=== PATIENT | male | born 1965 | race Two or more races ===

== ENCOUNTER 2024-07-24 20:34 | Emergency (ER) | payer MEDICAID, SELFPAY ==
[2024-07-24 21:07] VITALS: BP 163/92; PULSE 68; RESP 18; TEMP 36.7; O2SAT 96
--- NOTE | 2024-07-24 21:15 | PD.EDRME ---
Rapid Medical Screening Exam RME Arrival date/time: 07/24/24 20:34 59-year-old male presents emergency department complaining of pruritic rash to bilateral groins and left lower quadrant of abdomen that started 6 days ago. Chief Complaint: Skin/Abscess/Foreign Body Time Seen by Provider: 07/24/24 20:41 Vital signs: Vital Signs Temperature 98.1 F 07/24/24 21:07 Pulse Rate 68 07/24/24 21:07 Respiratory Rate 18 07/24/24 21:07 Blood Pressure 163/92 H 07/24/24 21:07 Pulse Oximetry (%) 96 07/24/24 21:07 Oxygen Delivery Method Room Air 07/24/24 21:07 Vital signs reviewed by provider: Yes
[2024-07-24] MEDS: DEXAMETHASONE SOD PHOS INJ 10 MG/ML VIAL IM (21:29)
[2024-07-24] MEDS: FAMOTIDINE 20 MG TABLET 40 MG PO (21:29)
[2024-07-24] MEDS: DiphenhydrAMINE 25 MG CAPSULE PO (21:29)
--- NOTE | 2024-07-24 22:48 | PD.EDALLER ---
ED Allergic Reaction RME/HPI General Chief complaint: Skin/Abscess/Foreign Body Stated complaint: Rash from stomach to Knees/itching/burning Time Seen by Provider: 07/24/24 20:41 Source: patient Arrival date/time: 07/24/24 20:34 59-year-old male presents emergency department complaining of pruritic rash to bilateral groins and left lower quadrant of abdomen that started 6 days ago after drinking alcohol. Mode of arrival: ambulatory Limitations: no limitations RME / HPI RME / HPI narrative: 07/24/24 20:34 59-year-old male presents emergency department complaining of pruritic rash to bilateral groins and left lower quadrant of abdomen that started 6 days ago. Related Data Home Medications ?Medication ?Instructions ?Recorded ?Confirmed lisinopril 5 mg tablet 5 mg PO QDAY 12/21/19 12/21/19 losartan 50 mg tablet 50 mg PO QDAY 04/01/22 04/30/22 tamsulosin 0.4 mg capsule 0.4 mg PO QHS 04/01/22 04/30/22 Previous Rx's ?Medication ?Instructions ?Recorded pantoprazole 40 mg tablet,delayed 40 mg PO QDAY #14 tabs 12/21/19 release (Protonix) omeprazole 20 mg capsule,delayed 20 mg PO QDAY #30 caps 03/11/22 release diphenhydramine HCl 25 mg capsule 25 mg PO TID PRN itching 7 days 07/24/24 (Benadryl) #10 caps Allergies Allergy/AdvReac Type Severity Reaction Status Date / Time No Known Allergies Allergy Verified 12/04/22 23:21 Review of Systems Review of Systems Systems Reviewed: All systems reviewed, normal except as documented Constitutional Constitutional: Reports system reviewed and no additional complaints, except as documented, Denies body ache(s), Denies chills and Denies fever(s) Eyes Eyes: Reports system reviewed and no additional complaints, except as documented and Denies change in vision ENT Ears, Nose, Mouth, and Throat: Reports system reviewed and no additional complaints, except as documented, Denies disequilibrium, Denies dizziness, Denies sore throat and Denies vertigo Cardiovascular Cardiovascular: Reports system reviewed and no additional complaints, except as documented, Denies chest pain and Denies dyspnea Respiratory Respiratory: Reports system reviewed and no additional complaints, except as documented, Denies chest congestion, Denies cough and Denies dyspnea Gastrointestinal Gastrointestinal: Reports system reviewed and no additional complaints, except as documented, Denies abdominal pain, Denies nausea and Denies vomiting Musculoskeletal Musculoskeletal: Reports system reviewed and no additional complaints, except as documented, Denies abnormal gait and Denies arthralgias Integumentary/Breasts Skin/Breast: Reports system reviewed and no additional complaints, except as documented, Denies erythema, Reports rash and Denies wounds Neurologic Neurologic: Reports system reviewed and no additional complaints, except as documented, Denies abnormal gait, Denies disequilibrium, Denies dizziness and Denies vertigo Past Medical History Past Medical History CARDIAC: Positive Hypertension; Negative Cardiac Disorders or Congestive Heart Failure RESPIRATORY: Negative Chronic Obstructive Pulmonary Disease (COPD) or Asthma GENITOURINARY: Negative Renal Disease ENDOCRINE: Negative Diabetes Mellitus Type 1 or Diabetes Mellitus Type 2 HEMATOLOGIC: Negative Sickle Cell Disease Social History SMOKING STATUS: Never smoker ED Exam General Limitations: Present no limitations General appearance: Present alert and in no apparent distress Head Head exam: Present atraumatic Eye Eye exam: Present normal appearance, PERRL and EOMI ENT ENT exam: Present normal exam, normal oropharynx and mucous membranes moist Neck Neck exam: Present normal inspection, full ROM and trachea midline Chest Chest inspection: Present normal inspection and symmetric chest wall rise Respiratory Respiratory exam: Present normal lung sounds bilaterally Cardiovascular Cardiovascular exam: Present regular rate, normal rhythm and normal heart sounds Abdominal Exam Abdominal exam: Present soft and normal bowel sounds Extremities Exam Extremities exam: Present normal inspection and full ROM Back Exam Back exam: Present normal inspection and full ROM Neurological Exam Neurological exam: Present alert, oriented X3 and CN II-XII intact Psychiatric Psychiatric exam: Present normal affect and normal mood Skin Skin exam: Present warm, dry, intact and rash Expanded Skin Exam Type of lesion: Present rash Distribution: Present generalized, abdomen and other (Right and left groin) Description: Present macular Body image: 1. Macular reddened rash 2. Macular reddened rash 3. Macular reddened rash Course Quality Measures none Orders Category Date Time Status Dexamethasone Inj [Decadron Inj] Med 07/24/24 21:14 Discontinued 10 mg IM X1 ONE DiphenhydrAMINE [Benadryl] Med 07/24/24 21:14 Discontinued 25 mg PO X1 ONE Famotidine [Pepcid] Med 07/24/24 21:14 Discontinued 40 mg PO X1 ONE Vital Signs Vital signs: Vital Signs Temperature 98.1 F 07/24/24 21:07 Pulse Rate 68 07/24/24 21:07 Respiratory Rate 18 07/24/24 21:07 Blood Pressure 163/92 H 07/24/24 21:07 Pulse Oximetry (%) 96 07/24/24 21:07 Oxygen Delivery Method Room Air 07/24/24 21:07 96% room air within normal limits Allergic Reaction MDM Narrative MDM Narrative:: 59-year-old male presents emergency department complaining of pruritic rash to bilateral groins and left lower quadrant of abdomen that started 6 days ago after drinking alcohol. Macular rash that involves left side of abdomen and bilateral groin significantly improved after steroids and antihistamines were given. Patient denies any new medication, exposure to chemicals, new lotions, new soaps, or any other exposure to possible allergens. Instructed patient have close follow-up with primary care provider and return to emergency department for any worsening symptoms or as needed. Patient data External records reviewed:: [facility] previous records Clinical information provided by:: patient Social determinants that could affect healthcare access:: none Patient has the following chronic illnesses:: See chart How is presenting disease/condition affected by chronic disease/condition?: uneffected by Evaluation data The following diagnostics were reviewed and interpreted by me:: other (specify) (N/A) Lab and/or radiology exams considered but not ordered:: N/A Interpretation Summary: N/A Medications / Prescriptions Medications or Prescriptions considered but not ordered:: Ordered Medication administrations:: Medication Administration History Discontinued Medications Dexamethasone Sodium Phosphate (Dexamethasone Sod Phos Inj 10 Mg/Ml Vial) 10 mg IM X1 ONE Stop: 07/24/24 21:15 Last Admin: 07/24/24 21:29 Dose: 10 mg Documented By: OA Diphenhydramine HCl (Diphenhydramine 25 Mg Capsule) 25 mg PO X1 ONE Stop: 07/24/24 21:15 Last Admin: 07/24/24 21:29 Dose: 25 mg Documented By: OA Famotidine (Famotidine 20 Mg Tablet) 40 mg PO X1 ONE Stop: 07/24/24 21:15 Last Admin: 07/24/24 21:29 Dose: 40 mg Documented By: OA Given Consultations Consultation(s) initiated? (list below): No Diagnosis Differential Diagnosis allergic reaction: allergic reaction, angioedema, contact dermatitis, adverse reaction to drug, viral enanthem and urticaria Most likely diagnosis given after review of the tests above:: Allergic reaction Admission Indicated Admission indicated?: not indicated Admission Request Was there a request for admission?: No Disposition Plan Disposition Plan: Discharge Discharge Attestation Discharge Attestation: The patient and all family members were given an opportunity to ask questions and understood the discharge instructions. Discharge instructions specifically effects, indications for sooner follow up or return to the emergency department, and the expected course of current diagnosis. Patient condition: Stable Discharge Plan Plan Patient Disposition: HOME (Self Care) Disposition Comment: Stable Prescriptions/Referrals Prescriptions/Med Rec: New diphenhydramine HCl [Benadryl] 25 mg capsule 25 mg PO TID PRN (Reason: itching) 7 Days Qty: 10 0RF No Action losartan 50 mg tablet 50 mg PO QDAY tamsulosin 0.4 mg capsule 0.4 mg PO QHS omeprazole 20 mg capsule,delayed release(DR/EC) 20 mg PO QDAY Qty: 30 0RF lisinopril 5 mg Tablet 5 mg PO QDAY pantoprazole [Protonix] 40 mg tablet,delayed release (DR/EC) 40 mg PO QDAY Qty: 14 0RF Referrals: Duke Hampton MD [Primary Care Provider] - In 1 week Problem List Clinical Impression: Allergic reaction Patient/Caregiver Discharge Instructions Discharge Activity: activity as tolerated Education Materials: ED Anaphylaxis, ED Allerg React Other General Ch Additional Instructions: Take Benadryl as needed for itching. Follow-up with primary care provider in 2 to 3 days for reevaluation of rash. Monitor environment for any new possible allergens. Return to emergency department for any worsening symptoms or as needed. Print Language: [place] Stand Alone Forms: Kady Award Info., Patient Portal Info Letter PA/SYNOPTIC METEOROLOGIST Supervising Physician PA/SYNOPTIC METEOROLOGIST Supervising Physician: Dr. Shah
== END 2024-07-25 00:32 | disposition home or self-care (01) ==
PROVIDERS: Emergency Provider Emergency Medicine; PCP Family Medicine
DX: T78.40XA Allergy, unspecified, initial encounter (principal)
CPT/HCPCS: 96372; 99283; J1100; A9270

== ENCOUNTER 2024-12-10 12:46 | Emergency (ER) | payer MEDICAID, SELFPAY ==
[2024-12-10 12:47] VITALS: BMI 38.2
[2024-12-10 12:53] VITALS: BP 136/82; PULSE 64; RESP 18; TEMP 36.8; O2SAT 97
--- NOTE | 2024-12-10 15:57 | PD.EDANIML ---
ED Animal Bite RME/HPI General Chief Complaint: Animal Bite Stated Complaint: DOG BITE TO L HAND Time Seen by Provider: 12/10/24 13:00 Arrival date/time: 12/10/24 12:46 59-year-old male presents emergency department today stating that his dog accidentally bit his hand today patient obtained a laceration left hand Limitations: no limitations Related Data Home Medications ?Medication ?Instructions ?Recorded ?Confirmed lisinopril 5 mg tablet 5 mg PO QDAY 12/21/19 12/21/19 losartan 50 mg tablet 50 mg PO QDAY 04/01/22 04/30/22 tamsulosin 0.4 mg capsule 0.4 mg PO QHS 04/01/22 04/30/22 Previous Rx's ?Medication ?Instructions ?Recorded pantoprazole 40 mg tablet,delayed 40 mg PO QDAY #14 tabs 12/21/19 release (Protonix) omeprazole 20 mg capsule,delayed 20 mg PO QDAY #30 caps 03/11/22 release amoxicillin 875 mg-potassium 1 tab PO BID 7 days #14 tabs 12/10/24 clavulanate 125 mg tablet ibuprofen 800 mg tablet 800 mg PO TID PRN pain #30 tabs 12/10/24 Allergies Allergy/AdvReac Type Severity Reaction Status Date / Time No Known Allergies Allergy Verified 12/10/24 12:49 Review of Systems Review of Systems Systems Reviewed: All systems reviewed, normal except as documented Constitutional Constitutional: Reports system reviewed and no additional complaints, except as documented, Denies fever(s) and Denies headache(s) Eyes Eyes: Reports system reviewed and no additional complaints, except as documented and Denies blurry vision ENT Ears, Nose, Mouth, and Throat: Reports system reviewed and no additional complaints, except as documented, Denies headache(s), Denies nasal congestion and Denies nasal discharge Cardiovascular Cardiovascular: Reports system reviewed and no additional complaints, except as documented, Denies chest pain and Denies dyspnea Respiratory Respiratory: Reports system reviewed and no additional complaints, except as documented, Denies chest congestion, Denies cough and Denies dyspnea Gastrointestinal Gastrointestinal: Reports system reviewed and no additional complaints, except as documented and Denies abdominal pain Integumentary/Breasts Skin/Breast: Reports system reviewed and no additional complaints, except as documented, Denies rash and Reports wounds (Laceration left hand) Neurologic Neurologic: Reports system reviewed and no additional complaints, except as documented, Reports as per HPI and Denies headache(s) Past Medical History Past Medical History CARDIAC: Positive Hypertension; Negative Cardiac Disorders or Congestive Heart Failure RESPIRATORY: Negative Chronic Obstructive Pulmonary Disease (COPD) or Asthma GENITOURINARY: Negative Renal Disease ENDOCRINE: Negative Diabetes Mellitus Type 1 or Diabetes Mellitus Type 2 HEMATOLOGIC: Negative Sickle Cell Disease Social History SMOKING STATUS: Never smoker ED Exam General Limitations: Present no limitations General appearance: Present alert and in no apparent distress Head Head exam: Present atraumatic Eye Eye exam: Present normal appearance, PERRL and EOMI ENT ENT exam: Present normal exam, normal oropharynx and mucous membranes moist Neck Neck exam: Present normal inspection, full ROM and trachea midline Chest Chest inspection: Present normal inspection and symmetric chest wall rise Respiratory Respiratory exam: Present normal lung sounds bilaterally Cardiovascular Cardiovascular exam: Present regular rate, normal rhythm and normal heart sounds Abdominal Exam Abdominal exam: Present soft and normal bowel sounds Extremities Exam Extremities exam: Present full ROM, tenderness and normal capillary refill Expanded Upper Extremity Exam Hand L/R back image:  1. 4 cm laceration no evidence of tendon ligamentous injury Back Exam Back exam: Present normal inspection and full ROM Neurological Exam Neurological exam: Present alert, oriented X3 and CN II-XII intact Psychiatric Psychiatric exam: Present normal affect and normal mood Skin Skin exam: Present warm, dry, intact and normal color Course Quality Measures none Orders Category Date Time Status Set Up Suture Tray STAT Care 12/10/24 13:09 Completed Wound Care NOW Care 12/10/24 13:09 Completed Lidocaine 1% 20 ml [Xylocaine 1% 20 ML] Med 12/10/24 13:09 Discontinued 20 ml INFL X1 ONE Vital Signs Vital signs: Vital Signs Temperature 98.3 F 12/10/24 12:53 Pulse Rate 64 12/10/24 12:53 Respiratory Rate 18 12/10/24 12:53 Blood Pressure 136/82 H 12/10/24 12:53 Pulse Oximetry (%) 97 12/10/24 12:53 Oxygen Delivery Method Room Air 12/10/24 12:53 O2 saturation 97% room air within normal limits Procedures -ED Laceration Laceration 1: Site: hand Side (If applicable): left Size (cm): 6 Description: linear Depth: simple, single layer Local Anesthetic: lidocaine 1% Amount of anesthesia used (mL): 5 Pre-repair: wound explored and irrigated extensively Skin layer closed with: nylon Size (cm): 4-0 Number of sutures: 6 Technique: simple, interrupted Animal Bite MDM Narrative MDM Narrative:: 59-year-old male presents emergency department today stating that his dog accidentally bit his hand today patient obtained a laceration left hand On exam patient is laceration left hand Wound irrigated copiously laceration pair with total of 6 sutures patient discharged home antibiotics and pain medication patient reports tetanus up-to-date Patient instructed have sutures removed in 10 days Patient discharged home in no distress to follow-up with primary care doctor in the next 24 to 48 hours and for any worsening symptoms to return to the ER immediately Patient data External records reviewed:: [facility] previous records Clinical information provided by:: patient Social determinants that could affect healthcare access:: none Patient has the following chronic illnesses:: None How is presenting disease/condition affected by chronic disease/condition?: no chronic disease Evaluation data The following diagnostics were reviewed and interpreted by me:: other (specify) (N/A) Lab and/or radiology exams considered but not ordered:: Consider not ordered Interpretation Summary: N/A Medications / Prescriptions Medications or Prescriptions considered but not ordered:: Given Medication administrations:: Medication Administration History Discontinued Medications Lidocaine HCl (Lidocaine Hcl 1% 20 Ml Vial) 20 ml INFL X1 ONE Stop: 12/10/24 13:10 Last Admin: 12/10/24 13:56 Dose: Not Given Documented By: REBECCA Non-Admin Reason: Other, see note Given Consultations Consultation(s) initiated? (list below): No Diagnosis Differential diagnosis animal bite: bite by animal, dog bite and rabies contact Most likely diagnosis given after review of the tests above:: Dog bite Admission Indicated Admission indicated?: not indicated Admission Request Was there a request for admission?: No Disposition Plan Disposition Plan: Discharge Discharge Attestation Discharge Attestation: The patient and all family members were given an opportunity to ask questions and understood the discharge instructions. Discharge instructions specifically effects, indications for sooner follow up or return to the emergency department, and the expected course of current diagnosis. Patient condition: Stable Discharge Plan Plan Patient Disposition: HOME (Self Care) Discharge Disposition comment: Stable Prescriptions/Referrals Prescriptions/Med Rec: New ibuprofen 800 mg tablet 800 mg PO TID PRN (Reason: pain) Qty: 30 0RF amoxicillin-pot clavulanate 875-125 mg tablet 1 tab PO BID 7 Days Qty: 14 0RF No Action losartan 50 mg tablet 50 mg PO QDAY tamsulosin 0.4 mg capsule 0.4 mg PO QHS omeprazole 20 mg capsule,delayed release(DR/EC) 20 mg PO QDAY Qty: 30 0RF lisinopril 5 mg Tablet 5 mg PO QDAY pantoprazole [Protonix] 40 mg tablet,delayed release (DR/EC) 40 mg PO QDAY Qty: 14 0RF Problem List Clinical Impression: Laceration of hand, Dog bite Patient/Caregiver Discharge Instructions Education Materials: ED Dog Bite Additional Instructions: Please follow up with your primary care doctor in the next 24-48hrs for any worsening symptoms return here immediately Please have sutures removed in 10 days Print Language: Monegasque Stand Alone Forms: Kady Award Info., Patient Portal Info Letter PA/FLOWER CHENILLER Supervising Physician PA/FLOWER CHENILLER Supervising Physician: Dr. horan
== END 2024-12-10 14:35 | disposition home or self-care (01) ==
PROVIDERS: Emergency Provider Family Medicine; PCP Physician Assistant
DX: S61.412A Laceration without foreign body of left hand, initial encounter (principal); W54.0XXA Bitten by dog, initial encounter
CPT/HCPCS: 12002; 99283